=== PATIENT | female | born 1970 | race Caucasian/White ===

== ENCOUNTER 2022-11-25 15:44 | Outpatient (CLI) | payer BC, SELFPAY ==
--- NOTE | 2022-11-25 15:40 | CRLHL7_ITS ---
For Patients: As a result of the Century Cures Act, medical imaging exams and procedure reports are released immediately into your electronic medical record. You may view this report before your referring provider. If you have questions, please contact your health care provider. BILATERAL SCREENING MAMMOGRAM WITH COMPUTER-AIDED DETECTION AND TOMOSYNTHESIS TECHNIQUE: CC and MLO views were obtained. These mammographic images have been obtained using full-field digital technique. These mammographic images were interpreted with the benefit of computer-aided detection. Breast Tomosynthesis was used in this interpretation. COMPARISON FILM: 11/24/21, 10/31/20, 11/08/16. FINDINGS: There are scattered areas of fibroglandular density IMPRESSION: There is no radiographic evidence for malignancy. ASSESSMENT: BI-RADS Category 1: Negative RECOMMENDATION: Routine screening mammogram in 1 year. A lay language report of this examination will be provided to the patient. Hemant Casillas M.D. Diagnostic Radiologist [email or web address] JASMIN/Dictated by: Hemant Casillas MD @ 11/26/2022 9:17:00 AM (Electronically Signed)
== END 2022-11-25 15:45 | disposition home or self-care (01) ==
PROVIDERS: Visit Provider Obstetrics & Gynecology
DX: Z12.31 Encounter for screening mammogram for malignant neoplasm of breast (principal)
CPT/HCPCS: 77063; 77067

== ENCOUNTER 2023-12-01 11:29 | Outpatient (CLI) | payer BC, SELFPAY ==
--- NOTE | 2023-12-01 11:30 | MM_ITS ---
Patient: WILLIAM MARES Facility:?[facility] Patient ID:?[id number] Site Patient ID:?[id number] Site :?[id number] Study:?XRay-Breast Bilateral 3D W/CAD-12/01/2023 12:00:31 PM Ordering Physician:Ruben Final Report: BILATERAL SCREENING MAMMOGRAM WITH COMPUTER-AIDED DETECTION AND TOMOSYNTHESIS TECHNIQUE: CC and MLO views were obtained. These mammographic images have been obtained using full-field digital technique. These mammographic images were interpreted with the benefit of computer-aided detection. Breast Tomosynthesis was used in this interpretation. COMPARISON FILM: 11/25/22, 11/24/21, 10/31/20. FINDINGS: The breasts are heterogeneously dense, which may obscure small masses IMPRESSION: There is no radiographic evidence for malignancy. ASSESSMENT: BI-RADS Category 1: Negative RECOMMENDATION: Routine screening mammogram in 1 year. A lay language report of this examination will be provided to the patient. Hemant Casillas M.D. Diagnostic Radiologist [email or web address] ROLAND/[email or web address] R& Transcribed: 8:23 p.m. JASMIN/Dictated by: Hemant Casillas MD @ 12/01/2023 12:19:00 PM Signed by:?Hemant Casillas MD @12/01/2023 8:30:07 PM (Electronic Signature)
== END 2023-12-01 11:30 | disposition home or self-care (01) ==
LOC: MAMMO 11:30
PROVIDERS: Visit Provider Obstetrics & Gynecology
DX: Z12.31 Encounter for screening mammogram for malignant neoplasm of breast (principal); R92.2 Inconclusive mammogram
CPT/HCPCS: 77063; 77067

== ENCOUNTER 2024-01-04 07:35 | Outpatient (CLI) | payer BC, SELFPAY | END 2024-01-04 07:36 | disposition home or self-care (01) | LOC: NFLDREF 01-07 20:21 | PROVIDERS: Visit Provider Obstetrics & Gynecology | DX: Z00.00 Encounter for general adult medical examination without abnormal findings (principal); Z13.6 Encounter for screening for cardiovascular disorders; Z13.1 Encounter for screening for diabetes mellitus | CPT/HCPCS: 80061; 82947 ==